=== PATIENT | female | born 1960 | race Caucasian/White ===

== ENCOUNTER 2023-05-28 16:28 | Emergency (ER) | payer OTHER, SELFPAY ==
--- NOTE | 2023-05-28 16:36 | ECG_ITS ---
[facility] Test Date: 2023-05-28 Pat Name: Thao Montgomery Department: Room: Gender: Female Coal Deliverer: : 1960 Requested By: Ruiz James Order Number: [id number] Hernandez MD: Imani Espana M.D. Measurements Intervals [place] Rate: 83 P: 40 [place]: 151 QRS: 44 QRSD: 95 T: 41 QT: 357 QTc: 420 Interpretive Statements SINUS RHYTHM No previous ECG available for comparison Electronically Signed On 05-30-2023 18:43:18 WARP PLACER by Imani Espana M.D. [id number]
[2023-05-28 16:45] VITALS: BP 115/76; PULSE 76; RESP 16; TEMP 36.6; O2SAT 94; BMI 36.6
--- NOTE | 2023-05-28 17:00 | XRR_ITS ---
PROCEDURE INFORMATION: Exam: XR Chest Exam date and time: 05/28/2023 5:13 PM Age: 63 years old Clinical indication: Shortness of breath; Patient HX: Chest pain; HTN TECHNIQUE: Imaging protocol: Radiologic exam of the chest. Views: 1 view. COMPARISON: No relevant prior studies available. FINDINGS: Lungs: Unremarkable. No consolidation. Pleural spaces: Unremarkable. No pleural effusion. No pneumothorax. Heart/Mediastinum: Unremarkable. No cardiomegaly. Bones/joints: Unremarkable. XR/XR chest 1V portable [id number] IMPRESSION: No acute findings.
[2023-05-28] MEDS: aspirin 81 mg Chew Tablet 324 MG PO (17:18)
[2023-05-28 17:21] LABS: Basophils # 0.1 10^3/uL (0.0-0.1); Basophils % 1.2 %; Eosinophils # 0.2 10^3/uL (0.0-0.8); Eosinophils % 3.9 %; Lymphocytes # 1.3 10^3/uL (0.8-4.8); Lymphocytes % 24.5 %; Mean Corpuscular HGB Conc 32.8 g/dL (30-55); Mean Corpuscular Hemoglobin 29.8 pg (27-33); Mean Corpuscular Volume 90.7 fl (85-98); Mean Platelet Volume 10.5 fL (7.4-10.4); Monocytes # 0.5 10^3/uL (0.2-0.9); Monocytes % 10.5 %; Neutrophils # 3.07 10^3/uL (1.8-7.7); Neutrophils % 59.7 %; Nucleated Red Blood Cells % 0 %; Platelet Count 206 10^3/cmm (157-399); Red Cell Distribution Width 12.8 % (12.1-15.1); White Blood Count 5.14 10^3/uL (3.29-11.43)
--- NOTE | 2023-05-28 17:26 | ED_ITS ---
Documented by User: Ruiz James MD 05/28/23 18:44 HPI - Chest Pain General: Chief Complaint: Chest Pain Stated Complaint: chest pain, sob Time Seen by Provider: 05/28/23 16:54 History of Present Illness: This patient is a 63-year-old white female who presents to the emergency department for evaluation of chest pain. Patient had developed chest pain that radiated down into the epigastric area 30 minutes prior to arrival. She states she was just leaving her daughter's house at the time. During this episode she felt short of breath and was diaphoretic. She also had some nausea. No vomiting. The chest pain has completely resolved now. It had resolved just prior to arrival to the emergency department. Her past medical history includes hypothyroidism. No history of any heart disease. No past surgical history. She does not smoke. Review of Systems General: Reports: 10 or more systems reviewed and unremarkable except in HPI and below Card: Reports: chest pain Physical Exam 2 Const: COMMON NORMALS: no acute distress, patient oriented x3 and no limitations GENERAL APPEARANCE: cooperative and comfortable HENMT: COMMON NORMALS: normocephalic, atraumatic, Normal nasal mucous membranes and turbinates present, moist oral mucous membranes and oropharynx normal HEAD & SCALP: normal to inspection, normocephalic and atraumatic FACE & SINUS: normal facial exam NOSE: Normal nasal mucous membranes and turbinates present Eye: COMMON NORMALS: Equal, round and reactive pupils present, EOMs intact bilaterally and conjunctivae normal GENERAL EYE: appearance normal, both eyes and all related structures CONJUNCTIVA: Yes conjunctivae normal PUPIL: Yes Equal, round and reactive pupils present Neck/C-Spine: COMMON NORMALS: supple and no JVD Chest: COMMONS NORMALS: normal inspection of the chest Resp: COMMON NORMALS: normal respiratory effort and clear to auscultation bi laterally AUSCULTATION: clear to auscultation bilaterally Cardio: COMMON NORMALS: no JVD, regular rate, regular rhythm, No gallops present (Cardio), No murmurs present (Cardio) and No rub (Cardio) RATE: regular rate RHYTHM: regular rhythm GI: COMMON NORMALS: Normal to inspection, nondistended, normoactive bowel sounds present, Soft to palpation and non-tender AUSCULTATION: Yes norm oactive bowel sounds PALPATION: Yes Soft to palpation : COMMON NORMALS: Yes no CVA tenderness BLADDER/KIDNEY EXAM: Yes no CVA tenderness Back/Pelvis: COMMON NORMALS: no CVA tenderness and thoracic and lumbar spine normal to inspection Extremity: COMMON NORMALS: normal to inspection Neuro: COMMON NORMALS: patient oriented x3 and CN's II-XII intact bilaterally Psych: COMMON NORMALS: mental status grossly normal, Normal thought process present and cooperative THOUGHT PROCESS: Normal thought process present Skin: COMMON NORMALS: no rashes or lesions noted, turgor normal and no jaundice GENERAL SKIN EXAM: no rashes or lesions noted and turgor normal Course Vital Signs: Vital signs: Vital Signs Temperature 97.8 F 05/28/23 16:45 Pulse Rate 78 05/28/23 20:41 Respiratory Rate 19 H 05/28/23 20:41 Blood Pressure 125/84 05/28/23 20:41 Pulse Oximetry 98 05/28/23 20:41 Oxygen Delivery Me thod Room Air 05/28/23 19:33 MDM - Chest Pain Medical Decision Making Patient is completely pain-free at this time. Her EKG revealed normal sinus rhythm with no ST segment abnormalities. Chest x-ray was normal. CBC and CMP normal. Lipase 25. Baseline troponin was less than 6. Patient continues to be pain-free. 2-hour troponin is pending. Patient care transferred to Dr. Chavarria. Patient is stable. Lab Data 05/28/23 17:13 05/28/23 17:13 Radiology Impressions Chest X-Ray 05/28/23 17:00 IMPRESSION: No acute findings. Laboratory Results WBC 5.14 10^3/uL (3.29-11.43) 05/28/23 17:13 RBC 4.30 10^6/uL (3.85-5.65) 05/28/23 17:13 Hgb 12.80 g/dL (11.27-16.99) 05/28/23 17:13 Hct 39.0 % (36-47) 05/28/23 17:13 MCV 90.7 fl (85-98) 05/28/23 17:13 MCH 29.8 pg (27-33) 05/28/23 17:13 MCHC 32.8 g/dL (30-55) 05/28/23 17:13 RDW 12.8 % (12.1-15.1) 05/28/23 17:13 Plt Count 206 10^3/cmm (157-399) 05/28/23 17:13 MPV 10.5 fL (7.4-10.4) H 05/28/23 17:13 Neut % (Auto) 59.7 % 05/28/23 17:13 Lymph % (Auto) 24.5 % 05/28/23 17:13 [place] % (Auto) 10.5 % 05/28/23 17:13 Eos % (Auto) 3.9 % 05/28/23 17:13 Baso % (Auto) 1.2 % 05/28/23 17:13 Neut # (Auto) 3.07 10^3/uL (1.8-7.7) 05/28/23 17:13 Lymph # (Auto) 1.3 10^3/uL (0.8-4.8) 05/28/23 17:13 [place] # (Auto) 0.5 10^3/uL (0.2-0.9) 05/28/23 17:13 Eos # (Auto) 0.2 10^3/uL (0.0-0.8) 05/28/23 17:13 Baso # (Auto) 0.1 10^3/uL (0.0-0.1) 05/28/23 17:13 Nucleated RBC % (auto) 0 % 05/28/23 17:13 Nucleated RBCs # 0.0 /100WBC 05/28/23 17:13 PT 12.40 SECONDS (12.1-14.9) 05/28/23 17:13 INR 0.90 (0.8-1.2) 05/28/23 17:13 APTT 27.6 SECONDS (23.9-36.7) 05/28/23 17:13 Sodium 139 mmol/L (136-145) 05/28/23 17:13 Potassium 3.8 mmol/L (3.5-5.1) 05/28/23 17:13 Chloride 104 mmol/L (98-107) 05/28/23 17:13 Carbon Dioxide 27 mmol/L (22-29) 05/28/23 17:13 Anion Gap 11.8 (5-19) 05/28/23 17:13 BUN 20 mg/dL (8-23) 05/28/23 17:13 Creatinine 0.9 mg/dL (0.5-0.9) 05/28/23 17:13 GFR Calculation 63.2 mL/min (90-130) L 05/28/23 17:13 Glucose 114 mg/dL (65-115) 05/28/23 17:13 Calculated Osmolality 291 mOsm/kg (285-295) 05/28/23 17:13 Calcium 9.7 mg/dL (8.5-10.5) 05/28/23 17:13 Total Bilirubin 0.4 mg/dL (0.15-1.2) 05/28/23 17:13 AST 41 U/L (0-32) H 05/28/23 17:13 ALT 27 U/L (0-33) 05/28/23 17:13 Alkaline Phosphatase 91 U/L (35-105) 05/28/23 17:13 Troponin T Baseline < 6 ng/L (0-10) 05/28/23 17:13 Troponin T 120 Minute 6.0 ng/L (0-10) 05/28/23 19:02 Delta Troponin T 0.95609 ABS# (0-10) 05/28/23 19:02 NT-Pro-B Natriuret Pep 53 pg/mL (0-125) 05/28/23 17:13 Total Protein 6.3 g/dL (6.6-8.7) L 05/28/23 17:13 Albumin 4.1 g/dL (3.5-5.2) 05/28/23 17:13 Globulin 2.2 g/dL (1.3-4.6) 05/28/23 17:13 Lipase 25 U/L (13-60) 05/28/23 17:13 All radiology interpretation(s) finalized by discharge Discharge Plan Discharge Patient Disposition: Home Clinical Impression: Chest pain Condition: Stable Discharge Orders: Discharge ED (Routine); Ordered 05/28/23 Ordered By: Santy Chavarria Patient Instructions: Chest Pain (ED) Activity Restrictions/Additional Instructions: Investigation did not reveal cause of your chest pain this evening. Return for repeated episodes of chest discomfort, shortness of breath, fever, cough, other concerning symptoms. Follow-up with your doctor this week. They may wish to run more tests as an outpatient. Coding Level of Care Code ED Plastics Fabrication Supervisor for Chg Fwd Documented by User: Santy Chavarria, 05/29/23 02:19 HPI - Chest Pain General: Chief Complaint: Chest Pain Stated Complaint: chest pain, sob Time Seen by Provider: 05/28/23 16:54 Course Vital Signs: Vital signs: Vital Signs Temperature 97.8 F 05/28/23 16:45 Pulse Rate 78 05/28/23 20:41 Respiratory Rate 19 H 05/28/23 20:41 Blood Pressure 125/84 05/28/23 20:41 Pulse Oximetry 98 05/28/23 20:41 Oxygen Delivery Me thod Room Air 05/28/23 19:33 MDM - Chest Pain Medical Decision Making Patient is completely pain-free at this time. Her EKG revealed normal sinus rhythm with no ST segment abnormalities. Chest x-ray was normal. CBC and CMP normal. Lipase 25. Baseline troponin was less than 6. Patient continues to be pain-free. 2-hour troponin is pending. Patient care transferred to Dr. Chavarria. Patient is stable. 63-year-old patient signed out to me at shift change by the previous physician. This was pending second Trope at 2 hours. Troponin remained stable. She is still pain-free. She will be allowed discharged with outpatient follow-up to return for worsening symptoms. Lab Data 05/28/23 17:13 05/28/23 17:13 Radiology Impressions Chest X-Ray 05/28/23 17:00 IMPRESSION: No acute findings. Laboratory Results WBC 5.14 10^3/uL (3.29-11.43) 05/28/23 17:13 RBC 4.30 10^6/uL (3.85-5.65) 05/28/23 17:13 Hgb 12.80 g/dL (11.27-16.99) 05/28/23 17:13 Hct 39.0 % (36-47) 05/28/23 17:13 MCV 90.7 fl (85-98) 05/28/23 17:13 MCH 29.8 pg (27-33) 05/28/23 17:13 MCHC 32.8 g/dL (30-55) 05/28/23 17:13 RDW 12.8 % (12.1-15.1) 05/28/23 17:13 Plt Count 206 10^3/cmm (157-399) 05/28/23 17:13 MPV 10.5 fL (7.4-10.4) H 05/28/23 17:13 Neut % (Auto) 59.7 % 05/28/23 17:13 Lymph % (Auto) 24.5 % 05/28/23 17:13 [place] % (Auto) 10.5 % 05/28/23 17:13 Eos % (Auto) 3.9 % 05/28/23 17:13 Baso % (Auto) 1.2 % 05/28/23 17:13 Neut # (Auto) 3.07 10^3/uL (1.8-7.7) 05/28/23 17:13 Lymph # (Auto) 1.3 10^3/uL (0.8-4.8) 05/28/23 17:13 [place] # (Auto) 0.5 10^3/uL (0.2-0.9) 05/28/23 17:13 Eos # (Auto) 0.2 10^3/uL (0.0-0.8) 05/28/23 17:13 Baso # (Auto) 0.1 10^3/uL (0.0-0.1) 05/28/23 17:13 Nucleated RBC % (auto) 0 % 05/28/23 17:13 Nucleated RBCs # 0.0 /100WBC 05/28/23 17:13 PT 12.40 SECONDS (12.1-14.9) 05/28/23 17:13 INR 0.90 (0.8-1.2) 05/28/23 17:13 APTT 27.6 SECONDS (23.9-36.7) 05/28/23 17:13 Sodium 139 mmol/L (136-145) 05/28/23 17:13 Potassium 3.8 mmol/L (3.5-5.1) 05/28/23 17:13 Chloride 104 mmol/L (98-107) 05/28/23 17:13 Carbon Dioxide 27 mmol/L (22-29) 05/28/23 17:13 Anion Gap 11.8 (5-19) 05/28/23 17:13 BUN 20 mg/dL (8-23) 05/28/23 17:13 Creatinine 0.9 mg/dL (0.5-0.9) 05/28/23 17:13 GFR Calculation 63.2 mL/min (90-130) L 05/28/23 17:13 Glucose 114 mg/dL (65-115) 05/28/23 17:13 Calculated Osmolality 291 mOsm/kg (285-295) 05/28/23 17:13 Calcium 9.7 mg/dL (8.5-10.5) 05/28/23 17:13 Total Bilirubin 0.4 mg/dL (0.15-1.2) 05/28/23 17:13 AST 41 U/L (0-32) H 05/28/23 17:13 ALT 27 U/L (0-33) 05/28/23 17:13 Alkaline Phosphatase 91 U/L (35-105) 05/28/23 17:13 Troponin T Baseline < 6 ng/L (0-10) 05/28/23 17:13 Troponin T 120 Minute 6.0 ng/L (0-10) 05/28/23 19:02 Delta Troponin T 0.80202 ABS# (0-10) 05/28/23 19:02 NT-Pro-B Natriuret Pep 53 pg/mL (0-125) 05/28/23 17:13 Total Protein 6.3 g/dL (6.6-8.7) L 05/28/23 17:13 Albumin 4.1 g/dL (3.5-5.2) 05/28/23 17:13 Globulin 2.2 g/dL (1.3-4.6) 05/28/23 17:13 Lipase 25 U/L (13-60) 05/28/23 17:13 Discharge Plan Discharge Patient Disposition: Home Clinical Impression: Chest pain Condition: Stable Discharge Orders: Discharge ED (Routine); Ordered 05/28/23 Ordered By: Santy Chavarria Patient Instructions: Chest Pain (ED) Activity Restrictions/Additional Instructions: Investigation did not reveal cause of your chest pain this evening. Return for repeated episodes of chest discomfort, shortness of breath, fever, cough, other concerning symptoms. Follow-up with your doctor this week. They may wish to run more tests as an outpatient. Coding Level of Care Code ED Plastics Fabrication Supervisor for Pam Mayfield
[2023-05-28 17:33] LABS: Partial Thromboplastin Time 27.6 SECONDS (23.9-36.7)
[2023-05-28 17:34] VITALS: BP 138/72; PULSE 104; RESP 20; O2SAT 98
[2023-05-28 17:39] LABS: Troponin(5th) Baseline < 6 ng/L (0-10)
[2023-05-28 17:50] LABS: Alanine Aminotransferase 27 U/L (0-33); Albumin Level 4.1 g/dL (3.5-5.2); Alkaline Phosphatase 91 U/L (35-105); Anion Gap 11.8 (5-19); Aspartate Amino Transferase 41 U/L (0-32); Blood Urea Nitrogen 20 mg/dL (8-23); Calcium 9.7 mg/dL (8.5-10.5); Carbon Dioxide 27 mmol/L (22-29); Chloride 104 mmol/L (98-107); Globulin 2.2 g/dL (1.3-4.6); Glomerular Filtration Rate 63.2 mL/min (90-130); Glucose 114 mg/dL (65-115); Lipase 25 U/L (13-60); NT Pro B Type Natriuretic Pept 53 pg/mL (0-125); Osmolality Calculated 291 mOsm/kg (285-295); Potassium 3.8 mmol/L (3.5-5.1); Sodium 139 mmol/L (136-145); Total Bilirubin 0.4 mg/dL (0.15-1.2); Total Protein 6.3 g/dL (6.6-8.7)
--- NOTE | 2023-05-28 18:35 | ECG_ITS ---
[facility] Test Date: 2023-05-28 Pat Name: Thao Montgomery Department: Room: Gender: Female Transportation Engineer: : 1960 Requested By: Ruiz James Order Number: [id number] Hernandez MD: Imani Espana M.D. Measurements Intervals [place] Rate: 77 P: 42 DC: 156 QRS: 48 QRSD: 93 T: 33 QT: 360 QTc: 408 Interpretive Statements SINUS RHYTHM Compared to ECG 05/28/2023 16:36:37 No significant changes Electronically Signed On 05-30-2023 8:15:24 DAIRY AND FOOD LABORATORY ASSISTANT by Imani Espana M.D. [id number]
[2023-05-28 19:33] VITALS: BP 125/84; PULSE 78; RESP 19; O2SAT 98
[2023-05-28 19:44] LABS: Troponin 5 2HR Delta 0.00001 ABS# (0-10)
[2023-05-28 20:41] VITALS: BP 125/84; PULSE 78; RESP 19; O2SAT 98
== END 2023-05-28 20:43 | disposition home or self-care (01) ==
PROVIDERS: Emergency Medicine; Emergency Provider Emergency Medicine
DX: R07.9 Chest pain, unspecified (principal)
CPT/HCPCS: 36415; 71045; 80053; 83690; 83880; 84484; 85025; 85610; 85730; 93005; 99285